=== PATIENT | male | born 1990 | race Caucasian/White ===

== ENCOUNTER 2018-12-28 16:31 | Outpatient (REF) | payer MEDICAID, SELFPAY ==
[2018-12-28 19:05] LABS: TSH (W/Ref FT4) 1.79 uIU/mL (0.358-3.74)
== END 2018-12-28 16:51 ==
LOC: LBN 16:31
PROVIDERS: PCP Internal Medicine; Visit Provider Family Medicine
DX: R45.86 Emotional lability (principal)
CPT/HCPCS: 84443

== ENCOUNTER 2019-02-03 03:40 | Outpatient (CLI) | payer MEDICAID, SELFPAY ==
--- NOTE | 2019-02-03 13:39 | DI.MRI_ITS ---
SYMPTOMS/DIAGNOSIS: SPELLS OF TREMBLING, TREMOR, R25.1, ? SEIZURES BRAIN MRI: The study was conducted according to the usual protocol. Axial T2, and sagittal T2, and axial diffusion, and axial FLAIR, and axial GRE, and axial T1 and coronal T2 pulse sequences were performed. No signal abnormality is demonstrated in the brain and there is no evidence of a hemorrhage, or mass or restricted diffusion. There is nothing to suggest mesial temporal sclerosis. The normal flow void is demonstrated in the cerebral vessels. The ventricles are normal. SUMMARY: Normal noncontrast enhanced brain MRI.
== END 2019-02-03 04:00 ==
PROVIDERS: PCP Internal Medicine; Visit Provider Psychiatry & Neurology Neurology
DX: R25.1 Tremor, unspecified (principal)
CPT/HCPCS: 70551

== ENCOUNTER 2019-02-09 01:55 | Outpatient (CLI) | payer MEDICAID, SELFPAY ==
--- NOTE | 2019-02-10 12:23 | PDOC.EEG_ITS ---
EEG: [facility] Department of Neurology LONG-TERM AMBULATORY EEG REPORT Date of Recordin02/09/19 at 15:26:59 to 02/10/19 at 06:16:22 Interpreting Physician: Dr. Julianne Lewis PCP/Referring Provider: Dr. Gerda Benedict Reason for study: Mr. Olson is a 28-year-old man with a 20+ year history of spells manifested by generalized tremors and inability to interact with his environment concerning for seizures. Current Medications: inhalational spacing device [Space Chamber Plus] #1 12/03/17 atorvastatin 20 mg tablet 20 mg PO DAILY #90 tab 11/11/18 naproxen sodium 550 mg tablet 550 mg PO HS PRN #90 tab-cap 11/11/18 buspirone 5 mg tablet 5 mg PO BID #180 tab 01/20/19 METHODS: An 18-channel digitized electroencephalogram was recorded in the ambulatory setting with video. The 10/20 international system of electrode placement was used and bipolar and referential electrode montages were recorded. In addition to EEG the patient was monitored for EKG and by video. Activation procedures of photic stimulation and hyperventilation were performed if applicable. The duration of the recording was ~14 hours. DESCRIPTION OF EEG: Waking background activity: During maximal wakefulness an11-Hz posterior background rhythm was present which was well-modulated, symmetrical, reactive to eye opening, and of moderate voltage. Faster frequencies were present in the bilateral anterior head regions. There was a normal anterior-posterior voltage gradient. Drowsy and sleeping background activity: During drowsiness, there was attenuation of the posterior dominant background rhythm and vertex waves. Normal stage II and III sleep was present with symmetrical sleep spindles, K- complexes, and vertex waves with slowing of the background rhythm to delta/theta frequencies. REM sleep manifested by rapid lateral eye movements and faster background rhythms was recorded. Arousal was unremarkable. Interictal abnormalities: none. Ictal findings: No events were recorded. Activating Procedures: Photic stimulation was performed which produced no posterior driving response. Hyperventilation was performed with moderate effort and produced no physiological slowing of the background. EKG: EKG revealed normal sinus rhythm. INTERPRETATION: This long-term EEG is normal during the awake and sleep states as well as during the activation procedures. PRIOR EEG: none CLINICAL CORRELATION: No focal regions of cerebral dysfunction or epileptiform activity was present. Epilepsy remains a clinical diagnosis and a normal EEG does not rule out epilepsy. Clinical correlation is advised. Julianne Lewis MD
== END 2019-02-09 02:15 ==
PROVIDERS: PCP Internal Medicine; Visit Provider Psychiatry & Neurology Neurology
DX: R56.9 Unspecified convulsions (principal)
CPT/HCPCS: 95953

== ENCOUNTER 2019-03-18 17:29 | Emergency (ER) | payer MEDICAID, SELFPAY ==
[2019-03-18 17:33] VITALS: BP 117/85; PULSE 86; RESP 16; TEMP 36.7; O2SAT 97
--- NOTE | 2019-03-18 17:47 | ED.GENADUL_ITS ---
Discharge Plan Disposition Patient Disposition: HOME Condition: Improving Discharge Details Chief Complaint: Chest/Rib Clinical Impression: Chest wall muscle strain Primary Care Provider: Gerda Benedict ED Provider: Gurvinder Chase Home Meds and New Rx's Prescriptions: New methocarbamol 500 mg tablet 500 mg PO Q6H PRN (Reason: Pain, Moderate) Qty: 14 RF: 0 Continued naproxen sodium 550 mg tablet 550 mg PO HS PRN (Reason: pain) Qty: 90 RF: 1 atorvastatin 20 mg tablet 20 mg PO DAILY Qty: 90 RF: 3 buspirone 5 mg tablet 5 mg PO BID Qty: 180 RF: 3 Space Chamber Plus 1 EACH spacer Miscellaneous BID Qty: 1 RF: 0 Discharge Instructions Instructions: Muscle Strain (ED) Additional Instructions: Remove Lidoderm patch in 12 hours time Continue your naproxen as previously scheduled. May use the prescribed methocarbamol if needed for muscular pain. Return if you develop shortness of breath, a cough or fever, or any other acute concerns. Follow-up with Dr. Benedict for recheck if not improving in 1 week's time Medical Decision Making 28-year-old male who slipped in her recliner last night, then transition to his bed, woke this morning with records and life anterior rib pain it is worse with movement and worse after working today. He is not had a cough, leg pain, swelling, shortness of breath. He has not had a rash. He has normal vital signs. Tender along the anterolateral rib cage and most consistent with a rib contusion and. He states he feels he may have slept block last night and does not have any history of trauma. Nonetheless, must exclude underlying structural injury and patient referred for chest Xray. There is no acute longer bony findings. Discussed with patient home management for chest wall strain. May try methocarb august as needed for muscular pain. Lidoderm patch x1 tonight. I do not find that this is consistent with PE or acute coronary syndrome. Patient understands return precautions. HPI General Mode of arrival: ambulatory . Date/Time Provider Initiated Documentation: 03/18/19 17:30 . Limitations to Documentation: no limitations . History of Present Illness 28 year old M presents to the emergency department with the chief complaint of Right greater than left rib pain, began today, described as moderate, Quality is described as aching, and is localized to the chest, left and right. Patient reports no radiation. Patient started experiencing this hour(s) and it has been constant. No relieving factors improve symptom(s), No exacerbating factors reported . Patient notes no other symptoms.; denies shortness of breath and syncope. Patient did receive the following treatments prior to arrival, none Related Data Home Medications Medication Instructions Recorded Confirmed Space Chamber Plus #1 12/03/17 02/16/19 atorvastatin 20 mg tablet 20 mg PO DAILY #90 tab 11/11/18 02/16/19 naproxen sodium 550 mg tablet 550 mg PO HS PRN #90 tab-cap 11/11/18 02/16/19 buspirone 5 mg tablet 5 mg PO BID #180 tab 01/20/19 02/16/19 methocarbamol 500 mg PO Q6H PRN #14 tab 03/18/19 Previous Rx's Medication Instructions Recorded atorvastatin 20 mg tablet 20 mg PO DAILY #90 tab 11/11/18 naproxen sodium 550 mg tablet 550 mg PO HS PRN #90 tab-cap 11/11/18 buspirone 5 mg tablet 5 mg PO BID #180 tab 01/20/19 methocarbamol 500 mg PO Q6H PRN #14 tab 03/18/19 Allergies Allergy/AdvReac Type Severity Reaction Status Date / Time methadone Allergy Severe seizure Verified 02/16/19 12:37 General Stated Complaint: Chest/Rib SKIP: 3 Review of Systems Review of Systems No recent travel, leg pain or swelling, fever, cough. Slept in a recliner last night. Does have poor sleep of 2 to 3 hours per night this week. 8 systems reviewed and otherwise negative [facility] Medical History H/O alcohol abuse (Acute) Anxiety and depression Chronic headaches High cholesterol Asthma Cigarette nicotine dependence without complication (Acute 05/13/18) Chronic back pain (Acute 03/29/15) BMI 34.0-34.9,adult (Acute 11/05/17) Depression (Resolved 03/29/15) Shingles (07/04/13) Surgical History Excision, Pilonidal Cyst (11/03/09) Tonsillectomy and adenoidectomy Family History Mother Diabetes Anxiety Arthritis Depression Father Heart disease Sister Asthma Grandfather Emphysema lung Grandmother No problems noted. Social History Smoking/Tobacco Use Status: Current every day Quit status: considering quitting Alcohol Intake: never Substance use type: does not use Household members: other Details: lives at [place] Housing: apartment Number of Children: 0 current occupation: works at [employer] What type of physical activity do you participate in: walking Duration: 15-30 minutes/day Frequency: 5-6 times per week Water heater temp set <120 deg: Yes Working smoke detector in home: Yes Fire extinguisher in home: Yes Exam Narrative Exam Narrative: GEN: awake, alert, oriented 3. Pleasant, well groomed, interactive. HEAD: Normocephalic, atraumatic ENT: Mucous membranes moist, oropharynx unremarkable, External ear exam unremarkable EYES: PERRL, EOMI NECK: Full ROM, no DOMINICK, no menigismus CHEST/RESP: Tender right anterolateral rib cage without crepitus, clear to auscultation bilateral, no wheeze/rhonchi/rales CARDIOVASCULAR: RRR, no murmur, rub diamond. 2+ Rad pulse bilateral ABDOMEN: Soft, nontender, no mass. +Bowel sounds EXT: Full ROM, no edema, no rash Neuro: Grossly normal neurologic exam, conversant, interactive. Psych: Speech fluent, thoughts congruent, affect normal Course Vital Signs Temperature 36.7 C 03/18/19 17:33 Pulse 86 03/18/19 17:33 Respiratory Rate 16 03/18/19 17:33 Blood Pressure 117/85 03/18/19 17:33 Pulse Oximetry 97 03/18/19 17:33 Temperature 36.7 C 03/18/19 17:33 Temperature Source Skin 03/18/19 17:33 Pulse 86 03/18/19 17:33 Respiratory Rate 16 03/18/19 17:33 Blood Pressure 117/85 03/18/19 17:33 Blood Pressure Position Sitting 03/18/19 17:33 Pulse Oximetry 97 03/18/19 17:33 Oxygen Delivery Method Room Air 03/18/19 17:33 Oxygen Flow Rate 0 03/18/19 17:33 Pain Level 7 03/18/19 17:33
--- NOTE | 2019-03-18 18:32 | DI.RAD_ITS ---
SYMPTOM/DIAGNOSIS: RIB PAIN PA AND LATERAL CHEST; Comparison is made with 01/12/13. The cardiac and mediastinal contours have a normal appearance. The lungs are well inflated and clear. No infiltrate, effusion or pneumothorax is seen. There are no grossly displaced rib fractures. IMPRESSION: Negative chest xray.
--- NOTE | 2019-03-18 19:07 | DI.VRAD_ITS ---
EXAM: XR Chest, 2 Views EXAM DATE/TIME: 03/18/2019 5:46 PM CLINICAL HISTORY: 28 years old, male; Chest wall pain; Right and left rib pain R > L TECHNIQUE: Imaging protocol: XR of the chest, 2 views. COMPARISON: CR CHEST 2 VIEWS PA,LAT 01/12/2013 3:46 PM FINDINGS: Lungs: Unremarkable. No consolidation. Pleural space: Unremarkable. No pleural effusion. No pneumothorax. Heart/Mediastinum: Unremarkable. No cardiomegaly. Bones/joints: Unremarkable. IMPRESSION: No active pulmonary disease. No acute changes compared to 01/12/2013. Dictated and Authenticated by: Emanuel Gruber MD. Ordering:MARY ELLEN Hollins MD
[2019-03-18 19:17] VITALS: BP 117/85; PULSE 86; RESP 16; TEMP 36.7; O2SAT 97
[2019-03-18] MEDS: Lidocaine 5% Patch 1 PATCH TP (19:22)
== END 2019-03-18 19:30 | disposition home or self-care (01) ==
PROVIDERS: Emergency Provider Emergency Medicine; PCP Internal Medicine
DX: S29.011A Strain of muscle and tendon of front wall of thorax, initial encounter (principal); X50.9XXA Other and unspecified overexertion or strenuous movements or postures, initial encounter
CPT/HCPCS: 99283; 71046

== ENCOUNTER 2019-05-12 07:34 | Outpatient (CLI) | payer MEDICAID, SELFPAY ==
[2019-05-12 09:58] LABS: Calculated LDL 176 mg/dL; Cholesterol 232 mg/dL (50-200); HDL Cholesterol 31 mg/dL (40-60); Triglyceride 126 mg/dL (30-150)
== END 2019-05-12 07:54 ==
PROVIDERS: PCP Internal Medicine; Visit Provider Internal Medicine
DX: E78.00 Pure hypercholesterolemia, unspecified (principal)
CPT/HCPCS: 36415; 80061; 83721

== ENCOUNTER 2019-06-19 21:11 | Emergency (ER) | payer MEDICAID, SELFPAY ==
[2019-06-19] VITALS (20 sets, daily range): BP systolic 99–131; BP diastolic 61–83; PULSE 63–101; RESP 13–32; TEMP 37.3; O2SAT 92–96
--- NOTE | 2019-06-19 21:33 | DI.RAD_ITS ---
SYMPTOM/DIAGNOSIS: CHEST PAIN EARLIER. PA AND LATERAL CHEST: 06/19 The heart is normal in size. The lungs are clear. The mediastinal structures and pleura appear intact. CONCLUSION: Normal chest.
--- NOTE | 2019-06-19 21:34 | DI.CT_ITS ---
SYMPTOM/DIAGNOSIS: DIMINISHED SENSATION LEFT FACE, LEFT FACE DROOP CRANIAL CT (WITHOUT CONTRAST): 06/[address] was performed. The ventricular system is normal in appearance. There is no evidence of an intracranial mass lesion. There is no evidence of a subdural or epidural hematoma. No focal areas of decreased attenuation are seen. CONCLUSION: Normal noncontrast Cranial CT.
--- NOTE | 2019-06-19 21:38 | W.ED.GENAD ---
Discharge Plan Disposition Patient Disposition: HOME Condition: Good Discharge Details Chief Complaint: FacialProb Clinical Impression: Weakness on left side of face, Chest pain, exertional Primary Care Provider: Gerda Benedict ED Provider: Triston Richardson Home Meds and New Rx's Prescriptions: No Action No Known Home Meds RF: 0 Discharge Instructions Additional Instructions: Please follow-up with neurology. Call on Friday for an appointment. Please follow-up with your primary care physician. Call on Friday for an appointment. You should have a stress test performed ideally within the next 72 hours. Return to the ER for any worsening or new concerning symptoms. If you notice any worsening of your symptoms, or any new symptoms such as vomiting, diarrhea, fever, chills, shortness of breath, chest pain, numbness, weakness, or fainting , please return immediately to the emergency department for reevaluation. Please follow up with your primary care provider as soon as possible for reassessment and reevaluation. As always, it was a pleasure participating in your medical care today. Referrals: Gerda Benedict MD [Primary Care Provider] - Julianne Lewis MD [ [facility] STAFF PHYSICIAN] - Discharge Data Discharge Date/Time-TO BE ENTERED AT DEPARTURE: 06/20/19 01:56 Medical Decision Making <Triston Richardson MD - Last Filed: 06/26/19 09:30> 21:52 --29-year-old male smoker with positive family history for heart disease, history of anxiety and depression, here with concern that his left face is drooping subtly compared to right face. I do not find any facial weakness on exam. Patient does note that left face sensation diminished to light touch compared to right. Otherwise neurologically intact. I think the likelihood of CVA is extremely low. Consider TIA as facial droop no longer present on exam. Plan to CT head. Patient also notes that he had some chest pain earlier today that lasted about 15 minutes after exertional activity. Patient is a smoker and has family history of heart disease. Consider ACS. ECG was reviewed and interpreted by me: Normal sinus rhythm 82 bpm, normal axis, no STEMI, nondiagnostic. Plan to check troponin. 22:13 --CT head interpreted by radiology: IMPRESSION: No acute intracranial findings. ASSESSMENT: ASPECTS ([place] Stroke Program Early CT Score) is 10 Chest x-ray reviewed and interpreted by radiology: No acute cardiopulmonary pathology 23:30 -- Patient reassessed and notes numbness has resolved. He did go to the bathroom and notes that he still feels like his left face is drooping. I again did not find any facial drooping on exam. Labs reviewed and initial troponin negative. Anion gap is slightly elevated. I will give IV fluid bolus. Will give full dose aspirin. Plan for delta troponin. <David Givens DO - Last Filed: 06/21/19 00:48> Case was signed out to me my colleague Dr. Triston Richardson. We are pending delta troponin at that time. Repeat delta troponin has returned within normal limits. CT imaging of the head is negative for acute process. The remainder the patient's laboratory work-up is benign. Repeat neurologic exam demonstrates no focal neurologic findings, no deficits, no evidence of facial droop. Sensation is intact throughout. At this time exam is inconsistent with stroke, ACS, or other acute life-threatening abnormality. Did discuss the importance of close follow-up with his primary care provider and his neurologist. We discussed red flags for which to return. Heart score is in the low risk category. I do feel that at this time the patient is clinically safe for discharge home with close follow-up. We discussed red flags which to return. I have extensively reviewed the treatment plan and discharge instructions with the patient. I have addressed all patient concerns at this time. The patient was made aware of what symptoms to monitor for that would warrant a return to the emergency department. Discussed the plan with the patient, they demonstrate verbal understanding and agreement with our assessment and plan at this time. HPI <Triston Richardson MD - Last Filed: 06/26/19 09:30> General Mode of arrival: ambulatory. Date/Time Provider Initiated Documentation: 06/19/19 21:21. Limitations to Documentation: no limitations. Information obtained by: patient. HPI Narrative: 29-year-old male smoker with history of asthma, anxiety and depression, family history of heart disease, presents with chief complaint of left facial weakness. Patient notes that around 730 this evening he went in the bathroom and looked in the mirror and noticed that his left face seemed to be drooping subtly compared to his right face. Symptoms moderate with no modifiers. He has not noticed this in the past. He also states that he pushed his finger into his left face and sensation seems different compared to the right side. Again this is not something is noticed in the past. Patient also notes that he had a long bike ride today and during his bike ride he developed bilateral leg pain and then developed chest pain. Pain was anterior central chest and lasted about 15 minutes. Pain improved when he stopped biking and started walking. He had no associated shortness of breath. No nausea, dizziness or diaphoresis. Related Data Home Medications Medication Instructions Recorded Confirmed Unknown [No Known Home Meds] 06/22/19 06/22/19 Allergies Allergy/AdvReac Type Severity Reaction Status Date / Time methadone Allergy Severe seizure Verified 06/22/19 14:38 General Stated Complaint: FacialProb SKIP: 3 Review of Systems <Triston Richardson MD - Last Filed: 06/26/19 09:30> Constitutional Denies headache(s) ENT Denies headache(s) Cardiovascular Reports as per HPI, Reports chest pain and Denies dyspnea Respiratory Denies dyspnea Neurologic Denies headache(s) PFSH <Triston Richardson MD - Last Filed: 06/26/19 09:30> Medical History Anxiety and depression Asthma BMI 34.0-34.9,adult (Acute 11/05/17) Chronic back pain (Acute 03/29/15) Chronic headaches Cigarette nicotine dependence without complication (Acute 05/13/18) Depression (Resolved 03/29/15) H/O alcohol abuse (Acute) High cholesterol Shingles (07/04/13) Surgical History Excision, Pilonidal Cyst (11/03/09) Tonsillectomy and adenoidectomy Family History Mother Diabetes Anxiety Arthritis Depression Father Heart disease Sister Asthma Grandfather Emphysema lung Grandmother No problems noted. Social History Smoking/Tobacco Use Status: Current every day Quit status: considering quitting Alcohol Intake: never Drug use: Never Substance use type: does not use Household members: other Details: lives at [place] Housing: apartment Number of Children: 0 current occupation: works at [employer] What type of physical activity do you participate in: walking Duration: 15-30 minutes/day Frequency: 5-6 times per week Water heater temp set <120 deg: Yes Working smoke detector in home: Yes Fire extinguisher in home: Yes Do you feel safe at home: Yes Do you feel safe in your relationship?: Yes Exam <Triston Richardson MD - Last Filed: 06/26/19 09:30> Const General: cooperative and no acute distress HENMT Head: normocephalic and atraumatic Ears: TM's normal bilaterally Mouth: moist mucous membranes Eyes Conjunctivae: normal conjunctivae Sclera: normal sclerae EOM: EOM intact bilaterally Neck Neck: trachea midline and supple Resp Auscultation: clear to auscultation bilaterally, no rales, no rhonchi and no wheezes Cardio Jugular venous pressure: no JVD Rate: regular rate and not tachycardic Rhythm: regular rhythm GI Palpation: soft, not firm, no guarding, no masses, not rigid and nontender Skin General skin exam: no rashes or lesions noted Neuro General: alert, awake, oriented x3, tone normal and no focal motor deficits Cranial Nerves: PERRL, accommodation normal, EOM intact bilaterally, facial strength normal, tongue midline, hearing normal, able to rotate head bilaterally, able to elevate shoulders bilaterally and Symmetric palate elevation Cognition: normal cognition Speech: speech normal Motor: muscle tone normal throughout and strength 5/5 throughout Sensory Exam: other (Diminished sensation to light touch left face compared to right) Extrem General: no edema Psych Appearance: grossly normal Mental Status: mental status grossly normal Speech and Movement: speech and movement normal Course <Triston Richardson MD - Last Filed: 06/26/19 09:30> Vital Signs Temperature 37.3 C 06/19/19 21:16 Pulse 97 H 06/19/19 21:16 Respiratory Rate 18 06/19/19 21:16 Blood Pressure 126/83 06/19/19 21:16 Pulse Oximetry 95 06/19/19 21:16 Temperature 37.3 C 06/19/19 21:16 Temperature Source Tympanic 06/19/19 21:16 Pulse 97 H 06/19/19 21:16 Respiratory Rate 18 06/19/19 21:16 Respiratory Effort Non-Labored 08/17/19 21:22 Blood Pressure 126/83 08/17/19 21:16 Blood Pressure Position Sitting 06/19/19 21:16 Pulse Oximetry 95 06/19/19 21:16 Oxygen Delivery Method Room Air 06/19/19 21:16 Oxygen Flow Rate 0 06/19/19 21:16 Pain Level 0 06/19/19 21:22
[2019-06-19 21:57] LABS: Abs Immature Grans 0.02 k/cumm (0.0-0.09); Absolute Eosinophil Count 0.69 k/cumm (0.0-0.7); Absolute Lymphocyte Count 2.56 k/cumm (1.2-3.4); Basophils % 0.4; HCT 46.3 % (40.0-50.0); Immature Grans % 0.2; Lymphocytes % 22.4; Mean Corp. HGB Concentration 34.6 g/dL (32.0-36.0); Mean Corpuscular Hemoglobin 31.7 pg (27.0-33.0); Mean Corpuscular Volume 91.7 fL (80-95); Monocytes % 6.7; Neutrophils % 64.3; Platelet Count 277 x1000/uL (130-400); RBC 5.05 m/cumm (4.50-6.00); RBC Distribution Width 13.6 % (11.8-14.1); White Blood Cell Count 11.42 k/cumm (4.4-10.8)
--- NOTE | 2019-06-19 22:04 | DI.VRAD_ITS ---
EXAM: CT Head Without Contrast EXAM DATE/TIME: 06/19/2019 21:35 CLINICAL HISTORY: 29 years old, male; Weakness, facial; Patient HX: Diminished left face sensation, left face droop TECHNIQUE: Imaging protocol: Computed tomography images of the head without contrast. Coronal and sagittal reformatted images were created and reviewed. Other technique: STROKE PROTOCOL was implemented. COMPARISON: MR brain wo 02/03/2019 16:00 FINDINGS: Brain: No hemorrhage. No significant white matter disease. No edema. Ventricles: No ventriculomegaly. Bones/joints: No acute fracture. Sinuses: No acute sinusitis. Mastoid air cells: No mastoid effusion. Soft tissues: No suspicious lesions. IMPRESSION: No acute intracranial findings. ASSESSMENT: ASPECTS ([place] Stroke Program Early CT Score) is 10 Dictated and Authenticated by: Radha Garcia MD. Ordering:HIGINIO Goldstein MD
[2019-06-19 22:05] LABS: Absolute Basophil Count 0.05 k/cumm (0.0-0.2); Absolute Monocyte Count 0.77 k/cumm (0.11-0.7); Absolute Neutrophil Count 7.34 k/cumm (1.2-6.7)
--- NOTE | 2019-06-19 22:07 | DI.VRAD_ITS ---
EXAM: XR Chest, 2 Views EXAM DATE/TIME: 06/19/2019 21:35 CLINICAL HISTORY: 29 years old, male; Other: Chest pain earlier TECHNIQUE: Imaging protocol: XR of the chest, 2 views. COMPARISON: CR XR CHEST 2V PA LATERAL 03/18/2019 18:29 FINDINGS: Lungs: No consolidation. Pleural space: No pleural effusion. No pneumothorax. Azygos fissure, normal variant. Heart/Mediastinum: No cardiomegaly. Bones/joints: No acute fracture. IMPRESSION: No acute cardiopulmonary pathology. Dictated and Authenticated by: Radha Garcia MD. Ordering:HIGINIO Goldstein MD
[2019-06-19 22:15] LABS: ALT 25 U/L (12-78); AST 7 U/L (15-37); Albumin 3.9 g/dL (3.4-5.0); Alkaline Phosphatase 87 U/L (46-116); Anion Gap 12.5 mmol/L (3-11); BUN 15 mg/dL (7-18); Bilirubin, Total 0.3 mg/dL (0.2-1.0); CO2 23.5 mmol/L (21.0-32.0); CREATININE 1.17 mg/dL (0.70-1.30); Calcium 8.7 mg/dL (8.5-10.1); Chloride 101 mmol/L (98-107); Glucose 99 mg/dL (70-100); Magnesium 1.9 mg/dL (1.8-2.4); Potassium 3.5 mmol/L (3.5-5.1); Sodium 137 mmol/L (136-145); Total Protein 7.7 g/dL (6.4-8.2)
[2019-06-19 22:19] LABS: Troponin I < 0.05 ng/mL (0.00-0.06)
[2019-06-19] MEDS: Normal Saline 1,000 ML 1000 ML IV (23:44)
[2019-06-19] MEDS: Aspirin 325 MG TAB PO (23:44)
[2019-06-20] VITALS (18 sets, daily range): BP systolic 82–91; BP diastolic 45–54; PULSE 56–80; RESP 16; O2SAT 94–98
[2019-06-20 01:13] LABS: Troponin I < 0.05 ng/mL (0.00-0.06)
== END 2019-06-20 01:56 | disposition home or self-care (01) ==
PROVIDERS: Emergency Provider Student in an Organized Health Care Education/Training Program; PCP Internal Medicine
DX: R53.1 Weakness (principal); R07.89 Other chest pain; F41.8 Other specified anxiety disorders
CPT/HCPCS: 36415; 36416; 80053; 82962; 96360; 99284; 70450; 71046; 83735; 84484; 85025

== ENCOUNTER 2019-07-07 00:19 | Outpatient (CLI) | payer MEDICAID, SELFPAY ==
--- NOTE | 2019-07-07 08:30 | ETT_ITS ---
*[facility]* *[facility]* [address] [place] [address] Stress Electrocardiography Sg protocol Date of study: 07/07/2019 *PATIENT PRESENTATION* Height: 177.2cm (69.8in) Blood Pressure: Weight: 100kg (220lb) BSA: 2.25m^2 Ordering physician: Ankur Sargent Impressions: Normal study after maximal exercise. Summary: 1. Stress ECG conclusions: The stress ECG is negative. 2. Stress: The target heart rate was achieved. Indication: R07.9. History: REASON FOR TESTING: PATIENT TESTING TODAY FOR FURTHER RISK STRATIFICATION. PATIENT PRESENTED TO THE ER ON 06/19/19 WITH LEFT SIDED FACIAL DROOP AND NUMBNESS. ALSO EARLIER IN THE DAY, HE STATES HE HAD SOME EXERTIONAL (LONG BIKE RIDE) MIDSTERNAL SHARP CHEST PAIN THAT LASTED APPROXIMATELY 15 MINUTES THAT IMPROVED WHEN HE STOPPED BIKING AND STARTED WALKING. TROPONINS IN THE ER WERE NEGATIVE X2. PATIENT DENIES CHEST PAIN UPON ARRIVAL TO TESTING TODAY. NO SIGNIFICANT PAST MEDICAL HISTORY. SMOKING STATUS: CURRENT SMOKER. SMOKED FOR 21 YEARS 1/2 TO 1 PPD. EXERCISE ROUTINE: WALKS APPROXIMATELY 3 TO 5 MILES PER DAY. Risk factors: Family history of coronary artery disease. Current tobacco use. Dyslipidemia. Cholesterol: 232mg/dl. HDL: 31mg/dl. LDL: 142mg/dl. Triglycerides: 126mg/dl. ALLERGIES: METHADONE. MEDICATIONS: NAPROXEN PRN (DOSE UNKNOWN), EXCEDERIN PRN (DOSE UNKNOWN), IBUPROFEN PRN (DOSE UNKNOWN). PATIENT STATES HE HAS NOT TAKEN FOLLOWING PRESCRIBED MEDICATIONS FOR THE PAST 5 MONTHS: BUSPAR (DOSE UNKNOWN), LIPITOR (DOSE UNKNOWN), TRAZODONE (DOSE UNKNOWN). Protocol: Sg protocol. Baseline ECG: SINUS RHYTHM. HR 76 BPM. Stress protocol: + +---+ + !Stage !HR !BP (mmHg) ! + +---+ + !Baseline supine !76 !118/78 (91)! + +---+ + !Baseline standing !103!114/72 (86)! + +---+ + !Stage I; 1.7mph, 10degrees; 3 min !119!118/70 (86)! + +---+ + !Stage II; 2.5mph, 12degrees; 3 min !132!130/66 (87)! + +---+ + !Stage III; 3.4mph, 14degrees; 3 min!162!140/70 (93)! + +---+ + !Recovery; 1 min !167!140/78 (99)! + +---+ + !Recovery; 3 min !103!150/70 (97)! + +---+ + !Recovery; 6 min !95 !120/74 (89)! + +---+ + * Stress results: STRESS TEST ENDED IN 11 MINUTES 6 SECONDS DUE TO FATIGUE AND COUGHING SPELL. NORMAL HEART RATE AND BLOOD PRESSURE RESPONSE TO EXERCISE. MAX HEART RATE: 188. 98 % OF TARGET HEART RATE ACHIEVED. MET'S: 13.48. NO ECTOPY. NO ANGINA. NO ST SEGMENT CHANGES. AVERAGE FUNCTIONAL CAPACITY. The target heart rate was achieved. The rate-pressure product for the peak heart rate and blood pressure was 23650iv Hg/min. Stress ECG: The stress ECG is negative. Alfaro treadmill score: 11. This score predicts a low risk of cardiac events. Study data: Von Ch MD supervised and was readily available during the procedure. This study was interpreted by [facility]. Study status: Routine. Consent: The risks, benefits, and alternatives to the procedure were explained to the patient and informed consent was obtained. Procedure: Initial setup. A baseline ECG was recorded. Surface ECG leads and manual cuff blood pressure measurements were monitored. Heart sounds: Normal. Lung sounds: Normal. Treadmill exercise testing was performed using the Sg protocol. Study completion: The patient tolerated the procedure well and was discharged from the lab. Discharge: The patient left the laboratory in stable condition. Birthdate: Patient birthdate: 1990. Sex: Gender: male. Study date: Study date: 07/07/2019. Study time: 00:01 AM. Electronically signed by Von Ch MD 07/07/2019 17:14
== END 2019-07-07 00:39 ==
PROVIDERS: PCP Internal Medicine; Visit Provider Family Medicine
DX: R07.9 Chest pain, unspecified (principal); E78.00 Pure hypercholesterolemia, unspecified; F17.200 Nicotine dependence, unspecified, uncomplicated; Z82.49 Family history of ischemic heart disease and other diseases of the circulatory system
CPT/HCPCS: 93017

== ENCOUNTER 2020-05-29 11:31 | Emergency (ER) | payer OTHER, SELFPAY ==
[2020-05-29 11:43] VITALS: BP 114/84; PULSE 95; RESP 22; TEMP 36.3; O2SAT 96
[2020-05-29 11:45] VITALS: RESP 22
--- NOTE | 2020-05-29 11:45 | DI.RAD_ITS ---
EXAM: XR CHEST 2V PA LATERAL CLINICAL HISTORY: shortness of breath TECHNIQUE: 2D digital imaging was performed. COMPARISON: No exams were available for comparison FINDINGS: MEDIASTINUM: Normal. HEART: Normal. PULMONARY VASCULATURE: Normal. LUNGS: Clear. PLEURAL SPACE: No pleural effusion or pneumothorax. BONE:Normal. OTHER FINDINGS:Normal. IMPRESSION: No acute pulmonary findings. DATA REPOSITORY: RADIATION DOSE DELIVERED:
--- NOTE | 2020-05-29 12:18 | ED.GENADUL_ITS ---
Discharge Plan Disposition Patient Disposition: HOME Condition: Improving Discharge Details Chief Complaint: Anxiety Clinical Impression: Anxiety Primary Care Provider: Gerda Benedict ED Provider: Taya Tijerina Discharge Instructions Instructions: Anxiety (ED) Additional Instructions: Follow-up with your primary care provider Stand Alone Forms: Work Release Referrals: Gerda Benedict MD [Primary Care Provider] - Medical Decision Making Patient presents to the emergency department with complaints of shortness of breath that most resemble anxiety. His vital signs are stable except respiratory rate which is elevated he is satting in the high 90s on room air there is no cough he has no abnormal breath sounds he is clear bilaterally with no wheezing coarse breath sounds or diminished breath sounds. A chest x-ray is obtained and shows no acute cardiopulmonary process. After discussing his x-ray results and time sitting in the room. His respiratory symptoms have resolved. He has no ongoing shortness of breath or symptoms at this time. He was advised to stop smoking. He is not comfortable returning to work. I will discharge him to home with no new orders. He should follow-up with his PCP to be released back to work. HPI General Date/Time Provider Initiated Documentation: 05/29/20 11:47 . Limitations to Documentation: no limitations . Information obtained by: patient . HPI Narrative: Patient presents to the emergency department for evaluation of shortness of breath and anxiety that developed while at work. He has had no fevers no chills no cough no known COVID exposures. He does smoke daily. He has not had any wheezing. Related Data Allergies Allergy/AdvReac Type Severity Reaction Status Date / Time methadone Allergy Severe seizure Verified 05/29/20 11:51 house dust Allergy Intermediate Wheezing Unverified 05/29/20 11:51 General Stated Complaint: Anxiety SKIP: 4 Review of Systems Constitutional Constitutional: Denies fever(s) Cardiovascular Cardiovascular: Denies chest pain and Reports dyspnea Respiratory Respiratory: Denies cough, Reports dyspnea, Denies stridor and Denies wheezing Psychiatric Psychiatric: Reports anxiety Allergic/Immunologic Allergic/Immunologic: Denies wheezing [facility] Medical History (Updated 05/29/20 @ 12:35 by Taya Tijerina NP) Anxiety (Chronic) Anxiety and depression (Resolved) Asthma BMI 34.0-34.9,adult (Acute 11/05/17) 2018: 34.4 Chronic back pain (Acute 03/29/15) Normal MRI 11/2014 Chronic headaches Cigarette nicotine dependence without complication (Acute 05/13/18) Depression (Chronic 03/29/15) H/O alcohol abuse (Acute) sober since 2015 High cholesterol Shingles (07/04/13) Surgical History Excision, Pilonidal Cyst (11/03/09) Tonsillectomy and adenoidectomy [place] Social History (Updated 11/17/19 @ 09:16 by Carmenza Schmid LPN) Smoking/Tobacco Use Status: Current every day Tobacco Type: cigarettes Years smoked: 21 Quit status: considering quitting Alcohol Intake: never Previous attempts at quittin Drug use: Never Substance use type: does not use Housing: apartment Number of Children: 0 current occupation: works at [employer] What type of physical activity do you participate in: walking Duration: 15-30 minutes/day Frequency: 5-6 times per week Water heater temp set <120 deg: Yes Working smoke detector in home: Yes Fire extinguisher in home: Yes Do you feel safe at home: Yes Do you feel safe in your relationship?: Yes Exam Const General: cooperative, healthy appearing, comfortable and anxious Nutritional Appearance: average body habitus Orientation: alert, awake and oriented x3 HENMT Head: normal to inspection, normocephalic and atraumatic Resp Effort & Inspection: normal respiratory effort Auscultation: clear to auscultation bilaterally, lung sounds not diminished and no wheezes Cardio Rate: regular rate Rhythm: regular rhythm Skin Lesions: no lesions Rashes: no rashes Neuro General: patient alert, patient awake and patient oriented x3 Cranial Nerves: CN's II-XI intact bilaterally Extrem General: normal to inspection and full ROM Course Vital Signs Vital signs: Vital Signs Temperature 36.3 C L 05/29/20 11:43 Pulse 95 H 05/29/20 11:43 Respiratory Rate 22 05/29/20 11:43 Blood Pressure 114/84 05/29/20 11:43 Pulse Oximetry 96 05/29/20 11:43 Temperature 36.3 C L 05/29/20 11:43 Temperature Source Tympanic 05/29/20 11:43 Pulse 95 H 05/29/20 11:43 Respiratory Rate 22 05/29/20 11:45 Respiratory Effort 05/29/20 11:45 Respiratory Depth Normal 07/27/20 11:45 Respiratory Pattern Normal 05/29/20 11:45 Blood Pressure 114/84 05/29/20 11:43 Pulse Oximetry 96 05/29/20 11:43 Oxygen Delivery Method Room Air 05/29/20 11:43 Oxygen Flow Rate 0 05/29/20 11:43 Pain Level 0 05/29/20 11:43
== END 2020-05-29 12:54 | disposition home or self-care (01) ==
PROVIDERS: Emergency Provider Nurse Practitioner Acute Care; PCP Internal Medicine
DX: F41.8 Other specified anxiety disorders (principal); R06.02 Shortness of breath; J45.909 Unspecified asthma, uncomplicated; F17.210 Nicotine dependence, cigarettes, uncomplicated
CPT/HCPCS: 99283; 71046

== ENCOUNTER 2020-07-07 03:42 | Outpatient (CLI) | payer OTHER, SELFPAY ==
[2020-07-10 14:37] LABS: COVID-19 RT-PCR Result NEGATIVE (Negative)
== END 2020-07-07 04:02 ==
PROVIDERS: PCP Family Medicine; Visit Provider Family Medicine
DX: Z11.59 Encounter for screening for other viral diseases (principal); Z01.811 Encounter for preprocedural respiratory examination
CPT/HCPCS: U0003

== ENCOUNTER 2020-07-10 00:22 | Outpatient (CLI) | payer OTHER, SELFPAY ==
[2020-07-10] MEDS: Albuterol HFA 18 GM 200 PUFF INH IH (14:27)
[2020-07-10] MEDS: Methacholine 100 MG VIAL IH (14:27)
[2020-07-10] MEDS: Inhaler, Assist Device 1 EACH MC (14:27)
--- NOTE | 2020-07-12 07:55 | W.PFT ---
Date of service: 07/10/20 Time of Service: 12:53 Pulmonary Function Test Result Interpretation Spirometry: Mild obstructive airways disease with no significant bronchodilator response. Impression Mild obstructive airways disease, with no significant bronchodilator response. When the study was compared to previous one from 12/05/2005, the patient has a total of 480 cc decline in FVC, FEV1 has declined by 290 cc. Clinical Correlation therefore is recommended. Methacholine Challnege Test Date of Service Date of Service: 07/10/2020 Note After baseline spirometry showing mild obstructive airways disease, methacholine challenge testing was carried out up to a methacholine concentration of 0.5 mg/mL at which point, the patient had a 28% drop in FEV1. Impression Strongly positive methacholine challenge test.
== END 2020-07-10 00:42 ==
PROVIDERS: PCP Family Medicine; Visit Provider Family Medicine
DX: R06.09 Other forms of dyspnea (principal); F17.200 Nicotine dependence, unspecified, uncomplicated
CPT/HCPCS: 94060; 95070; J7674

== ENCOUNTER 2020-08-31 14:08 | Outpatient (REF) | payer OTHER, SELFPAY ==
[2020-09-06 12:22] LABS: Chlamydia Result Negative (Negative); GC Result Negative (Negative)
== END 2020-08-31 14:28 ==
LOC: LBN 14:08
PROVIDERS: PCP Family Medicine; Visit Provider Family Medicine
DX: R30.0 Dysuria (principal); N34.2 Other urethritis
CPT/HCPCS: 87491; 87591; 87086

== ENCOUNTER 2020-09-07 00:52 | Outpatient (CLI) | payer OTHER, SELFPAY ==
[2020-09-07 09:22] LABS: Anion Gap 8.4 mmol/L (3-11); BUN 11 mg/dL (7-18); CO2 29.6 mmol/L (21.0-32.0); CREATININE 1.21 mg/dL (0.70-1.30); Calcium 9.5 mg/dL (8.5-10.1); Chloride 104 mmol/L (98-107); Glucose 102 mg/dL (74-106); Magnesium 2.1 mg/dL (1.8-2.4); Potassium 4.2 mmol/L (3.5-5.1); Sodium 142 mmol/L (136-145); TSH (W/Ref FT4) 2.04 uIU/mL (0.36-3.74)
== END 2020-09-07 01:12 ==
PROVIDERS: PCP Family Medicine; Visit Provider Family Medicine
DX: Q15.9 Congenital malformation of eye, unspecified (principal); H57.9 Unspecified disorder of eye and adnexa
CPT/HCPCS: 36415; 80048; 83735; 84443

== ENCOUNTER 2020-11-30 21:14 | Outpatient (REF) | payer SELFPAY ==
[2020-12-02 17:15] LABS: COVID-19 RT-PCR Result NEGATIVE (Negative)
== END 2020-11-30 21:34 ==
LOC: NCHCN 21:14
PROVIDERS: PCP Family Medicine; Visit Provider Physician Assistant Medical
DX: R11.0 Nausea (principal); Z20.822 Contact with and (suspected) exposure to COVID-19
CPT/HCPCS: U0003

== ENCOUNTER 2020-12-05 00:59 | Outpatient (CLI) | payer OTHER, SELFPAY ==
--- NOTE | 2020-12-05 | DI.US_ITS ---
EXAM: US ABDOMEN CLINICAL HISTORY: RUQ ABD PAIN, R10.11 TECHNIQUE: Ultrasound abdomen performed using standard protocol. COMPARISON: No exams were available for comparison FINDINGS: ABDOMINAL AORTA AND IVC: Visualized portions normal caliber. PANCREAS: Normal where visualized. LIVER: Normal. Hepatopedal flow in the Portal Vein. The liver measures 18.4 cm in length. GALLBLADDER: No evidence of cholelithiasis. No evidence of wall thickening. No pericholecystic fluid identified. BILIARY SYSTEM: Common bile duct measures < 7 mm. No intrahepatic biliary ductal dilation. BRYSON'S SIGN: Negative. KIDNEYS: Kidneys are symmetric in size. No evidence of renal calculi. No evidence of hydronephrosis. No renal mass or cyst identified. SPLEEN: Not enlarged. ASCITES: None seen. IMPRESSION: Mild hepatomegaly. Otherwise unremarkable abdominal ultrasound. DATA REPOSITORY:
== END 2020-12-05 01:00 | disposition home or self-care (01) ==
LOC: DI 00:59
PROVIDERS: PCP Family Medicine; Visit Provider Physician Assistant Medical
DX: R16.0 Hepatomegaly, not elsewhere classified (principal)
CPT/HCPCS: 76700

== ENCOUNTER 2020-12-05 03:10 | Outpatient (CLI) | payer OTHER, SELFPAY ==
[2020-12-05 10:23] LABS: Abs Immature Grans 0.01 10^3/uL (0.0-0.06); Absolute Basophil Count 0.04 10^3/uL (0.0-0.2); Absolute Eosinophil Count 0.43 10^3/uL (0.0-0.7); Absolute Lymphocyte Count 1.65 10^3/uL (1.2-3.4); Absolute Monocyte Count 0.47 10^3/uL (0.1-0.8); Absolute Neutrophil Count 3.72 10^3/uL (1.2-6.7); Basophils % 0.6; Eosinophils % 6.8; HCT 45.7 % (40.0-50.0); HGB 15.5 g/dL (13.5-17.5); Immature Grans % 0.2; Lymphocytes % 26.1; MCH 31.6 pg (27.0-33.0); MCHC 33.9 % (32.0-36.0); MCV 93.1 fL (80-95); MPV 9.9 fL (8.0-11.0); Monocytes % 7.4; Neutrophils % 58.9; Nucleated RBC 0 %; Platelet Count 241 10^3/uL (130-400); RBC 4.91 10^6/uL (4.36-5.78); RDW 13.6 % (11.8-14.1); RDW-SD 46.5 fL; WBC 6.32 10^3/uL (4.4-10.8)
[2020-12-05 11:05] LABS: ALT 34 U/L (16-63); AST 12 U/L (15-37); Alkaline Phosphatase 80 U/L (46-116); Anion Gap 6.7 mmol/L (3-11); BUN 15 mg/dL (7-18); Bilirubin, Total 0.5 mg/dL (0.2-1.0); CO2 29.3 mmol/L (21.0-32.0); CREATININE 1.1 mg/dL (0.70-1.30); Calcium 9.4 mg/dL (8.5-10.1); Chloride 104 mmol/L (98-107); Glucose 92 mg/dL (74-106); Potassium 4.3 mmol/L (3.5-5.1); Sodium 140 mmol/L (136-145); Total Protein 7.2 g/dL (6.4-8.2)
== END 2020-12-05 03:11 | disposition home or self-care (01) ==
LOC: LBO 03:10
PROVIDERS: PCP Family Medicine; Visit Provider Physician Assistant Medical
DX: K29.70 Gastritis, unspecified, without bleeding (principal); R10.11 Right upper quadrant pain
CPT/HCPCS: 36415; 80053; 85025

== ENCOUNTER 2020-12-15 02:35 | Outpatient (CLI) | payer OTHER, SELFPAY ==
[2020-12-15 17:44] LABS: Lipase 81 U/L (73-393)
== END 2020-12-15 02:36 | disposition home or self-care (01) ==
LOC: LBO 02:35
PROVIDERS: PCP Family Medicine; Visit Provider Family Medicine
DX: R10.9 Unspecified abdominal pain (principal)
CPT/HCPCS: 36415; 83690

== ENCOUNTER 2021-02-28 09:51 | Emergency (ER) | payer OTHER, SELFPAY ==
[2021-02-28] VITALS (24 sets, daily range): BP systolic 108–130; BP diastolic 69–88; PULSE 52–86; RESP 13–22; TEMP 36.7–36.9; O2SAT 97–100
--- NOTE | 2021-02-28 10:00 | DI.CT_ITS ---
EXAM: CT HEAD WO CLINICAL HISTORY: Seizure like activity, muscle weakness. TECHNIQUE: Imaging Protocol: Axial computed tomography images with coronal and sagittal reformatted images were created and reviewed COMPARISON: CT CT HEAD FOR STROKE PROTOCOL from 06/19/2019 FINDINGS: There are no skull fractures nor fluid in the visualized paranasal sinuses. There is no evidence of intracranial hemorrhage, mass effect, or shift of midline structures. There are no extra-axial fluid collections. The ventricles are not enlarged or shifted and there is no blo od within the ventricular system nor within the basal cisterns. IMPRESSION: No acute intracranial findings on this noninfused CT scan of the brain. No significant change compar ed to prior CT scan June 2019. RADIATION DOSE DELIVERED: 889.12mGy.cm Total DLP DATA REPOSITORY: All CT scans at this facility are submitted to the National Radiology Data Registry (NRDR) Dose Index Registry (DIR) with the [employer] (ACR). RADIATION OPTIMIZATION: All CT scans at this facility use at least one of these dose optimization te chniques: automated exposure control; mA and/or kV adjustment per patient size (includes targeted exa ms where dose is matched to clinical indication); or iterative reconstruction.
--- NOTE | 2021-02-28 10:06 | W.ED.GENAD ---
Discharge Plan Disposition Patient Disposition: HOME Condition: Stable Discharge Details Clinical Impression: Seizure-like activity Primary Care Provider: Ankur Sargent ED Provider: Betty Ordoñez Home Meds and New Rx's Prescriptions: Continued ibuprofen 200 mg tablet 600 mg PO Q6H PRNRF: 0 buspirone 5 mg tablet 5 mg PO QHS Qty: 180 RF: 3 omeprazole 40 mg capsule,delayed release(DR/EC) 40 mg PO DAILY Qty: 30 RF: 0 albuterol sulfate [ProAir HFA] 90 mcg/actuation HFA aerosol inhaler 2 puff IH Q6H PRN (Reason: shortness of breath or wheezing) Qty: 18 RF: 0 Discharge Instructions Instructions: Recurrent Seizures in Adults (ED) Additional Instructions: At this time you are placed on a care management list for follow-up with neurology. You may need further evaluation and work-up. Please return to the ER immediately for any fever, worsening weakness, recurrent seizure-like activity or any concerns. Please follow-up with your primary care provider within 3 to 5 days. Referrals: Ankur Sargent DO [Primary Care Provider] - Medical Decision Making 30-year-old male presents to the ER via EMS status post seizure-like activity which occurred this morning prior to arrival. Patient states that he was in bed, he was aware and awake throughout episode. It was an unwitnessed episode with unknown duration. Patient states that he was shaking and had significant weakness afterwards and body aches. He reports having a sleep study done Friday night and was sleep deprived at that time. He also endorses diarrhea which began yesterday. He denies any shortness of breath, chest pain no cough, denies any fever, no nausea, vomiting. Denies any dysuria or problems urinating. He has no injuries noted from the episode. Did not bite his tongue denies any loss of bowel or bladder control. He has never had an official seizure diagnosis and does not take any antiepileptics. He does have a past medical history of periodic limb movement, vertigo, postconcussive syndrome, depression, anxiety, migraine headaches with aura, mood swings, high cholesterol. At this time labs ordered including CBC, CMP, TSH, urinalysis, urine drug screen, head CT without contrast. Upon record review patient did see neurology Dr. Lewis September 2020 and had a telehealth visit in November of this year. At that time he was having some eye twitching. He also has had an negative noncontrast MRI of brain in February 2019. 1203: CBC is within normal limits no leukocytosis, CMP is also within normal limits. Urinalysis shows no evidence of UTI no nitrites no leukocytes urine drug screen is negative. Upon patient reevaluation his weakness has improved to his lower extremities. Upon entering room he is playing on a cell phone. He remains alert and oriented x4 throughout stay. He states that he feels tired but no other symptoms. He has had no other seizure activity while being in the emergency department. 1206: Will page Julianne Arriaza for consult. 1238: Spoke with Dr. Lewis regarding patient she recommends follow-up in the clinic for further evaluation. Discussed home care and strict return instructions he verbalizes understanding. This text was generated using [employer] system, please disregard any oddities of phrase or misspellings. HPI General Mode of arrival: EMS. Date/Time Provider Initiated Documentation: 02/28/21 10:01. Limitations to Documentation: no limitations. Information obtained by: patient, EMS, RN notes reviewed and old records reviewed. HPI Narrative: 30-year-old male presents to the ER via EMS status post seizure-like activity which occurred this morning prior to arrival. Patient states that he was in bed, he was aware and awake throughout episode. It was an unwitnessed episode with unknown duration. Patient states that he was shaking and had significant weakness afterwards and body aches. He reports having a sleep study done Friday night and was sleep deprived at that time. He also endorses diarrhea which began yesterday. He denies any shortness of breath, chest pain no cough, denies any fever, no nausea, vomiting. Denies any dysuria or problems urinating. He has no injuries noted from the episode. Did not bite his tongue denies any loss of bowel or bladder control. He has never had an official seizure diagnosis and does not take any antiepileptics. He does have a past medical history of periodic limb movement, vertigo, postconcussive syndrome, depression, anxiety, migraine headaches with aura, mood swings, high cholesterol. Related Data Home Medications Medication Instructions Recorded Confirmed ibuprofen 200 mg tablet 600 mg PO Q6H PRN tab 05/31/20 11/20/20 albuterol sulfate 90 mcg/actuation 2 puff IH Q6H PRN #18 gm 06/15/20 11/20/20 aerosol inhaler buspirone 5 mg tablet 5 mg PO QHS #180 tab 11/27/20 11/27/20 omeprazole 40 mg capsule,delayed 40 mg PO DAILY #30 cap 12/08/20 12/08/20 release Previous Rx's Medication Instructions Recorded albuterol sulfate 90 mcg/actuation 2 puff IH Q6H PRN #18 gm 06/15/20 aerosol inhaler buspirone 5 mg tablet 5 mg PO QHS #180 tab 11/27/20 omeprazole 40 mg capsule,delayed 40 mg PO DAILY #30 cap 12/08/20 release Allergies Allergy/AdvReac Type Severity Reaction Status Date / Time methadone Allergy Severe seizure Verified 02/28/21 09:57 house dust Allergy Intermediate Wheezing Verified 02/28/21 09:57 Fish Containing Products AdvReac nausea/loose Verified 02/28/21 09:57 stools General Stated Complaint: Seizure SKIP: 3 Review of Systems Narrative: Constitutional: Negative for weight loss, alert and oriented, well groomed, normal body habitus, appears comfortable. HEENT: Denies trauma, headaches, blurry vision, nasal discharge, sore throat, trouble swallowing. Chest: Denies chest pain, palpitations, irregular rhythm, hypertension. Respiratory: Denies Shortness of breath, cough, hemoptysis. GI: Denies abdominal pain, nausea, vomiting, constipation. Positive diarrhea began yesterday. : Denies dysuria, hematuria, flank pain, rectal bleeding. Neuro: Denies dizziness, blurry vision, syncope, headache or facial numbness. Reports seizure-like activity this morning. No loss of consciousness. Has bilateral lower extremity generalized weakness. Hematologic: Denies easy bruising, intolerance to heat or cold, hair loss. [facility] Medical History Anxiety Anxiety and depression Asthma BMI 34.0-34.9,adult (11/05/17) 2018: 34.4 Chronic back pain (03/29/15) Normal MRI 11/2014 Chronic headaches Cigarette nicotine dependence without complication (05/13/18) Dependent edema Depression (03/29/15) H/O alcohol abuse sober since 2015 High cholesterol Postconcussive syndrome Shingles (07/04/13) Surgical History Excision, Pilonidal Cyst (11/03/09) Tonsillectomy and adenoidectomy [facility] Family History Mother Diabetes Anxiety Arthritis Depression Father Heart disease Sister Asthma Grandfather Emphysema lung Grandmother No problems noted. Social History Smoking/Tobacco Use Status: Current every day Tobacco Type: cigarettes Years smoked: 21 Quit status: considering quitting Smoking risk assessment performed?: Yes Alcohol Intake: never Previous attempts at quittin Drug use: Never Substance use type: does not use Household members: family Housing: apartment Number of Children: 0 current occupation: works at [employer] What type of physical activity do you participate in: walking Duration: 15-30 minutes/day Frequency: 5-6 times per week Water heater temp set <120 deg: Yes Working smoke detector in home: Yes Fire extinguisher in home: Yes Do you feel safe at home: Yes Do you feel safe in your relationship?: Yes Exam Narrative Exam Narrative: Constitutional: Alert and oriented x4. Appears stated age. Normal body habitus. Head: Normocephalic, no trauma. Eyes: Pupils PERRLA, Red reflex noted, EOM's intact. Eyelids symmetrical without lesions, discharge, or swelling. ENT: Bilateral TM's WNL, External ear normal to inspection, no mastoid TTP, swelling, or erythema, Nasal turbinates WNL, no nasal discharge. Normal dentition, Posterior pharynx WNL, no exudate. No intraoral trauma. Chest: RRR, Normal S1, S2, distal pulses intact. Resp: Lungs clear to auscultation bilaterally, no wheezes, rales, or rhonchi. Musculoskeletal: Unable to assess gait. Skin: No suspicious rashes or lesions. Capillary refill less than 2 sec. Neurologic: Cranial nerves II-XII intact. Alert and oriented x 4. Strength 4+ bilaterally upper extremities, 3+ bilaterally lower extremities. Sensation is intact bilateral lower extremities. Hematologic/Lymphatic: No ecchymosis, no lymphadenopathy. Course Vital Signs Vital signs: Vital Signs Temperature 36.9 C 02/28/21 09:51 Pulse 69 02/28/21 09:51 Respiratory Rate 16 02/28/21 09:51 Blood Pressure 130/88 02/28/21 09:51 Pulse Oximetry 100 02/28/21 09:51 Temperature 36.9 C 02/28/21 09:51 Temperature Source Skin 02/28/21 09:51 Pulse 69 02/28/21 09:51 Respiratory Rate 16 02/28/21 09:51 Respiratory Effort 02/28/21 10:02 Respiratory Depth Normal 02/28/21 10:02 Respiratory Pattern Normal 02/28/21 10:02 Blood Pressure 130/88 02/28/21 09:51 Blood Pressure Position Sitting 02/28/21 09:51 Pulse Oximetry 100 02/28/21 09:51 Oxygen Delivery Method Room Air 02/28/21 09:51 Oxygen Flow Rate 0 02/28/21 09:51
[2021-02-28] MEDS: Normal Saline 1,000 ML 1000 ML IV (10:15)
[2021-02-28 10:21] LABS: Abs Immature Grans 0.01 10^3/uL (0.0-0.06); Absolute Basophil Count 0.04 10^3/uL (0.0-0.2); Absolute Eosinophil Count 0.58 10^3/uL (0.0-0.7); Absolute Lymphocyte Count 1.76 10^3/uL (1.2-3.4); Absolute Monocyte Count 0.49 10^3/uL (0.1-0.8); Absolute Neutrophil Count 3.81 10^3/uL (1.2-6.7); Basophils % 0.6; Eosinophils % 8.7; HCT 45.7 % (40.0-50.0); HGB 15.5 g/dL (13.5-17.5); Immature Grans % 0.1; Lymphocytes % 26.3; MCH 31.4 pg (27.0-33.0); MCHC 33.9 % (32.0-36.0); MCV 92.7 fL (80-95); MPV 9.5 fL (8.0-11.0); Monocytes % 7.3; Nucleated RBC 0 %; Platelet Count 253 10^3/uL (130-400); RBC 4.93 10^6/uL (4.36-5.78); RDW 12.9 % (11.8-14.1); RDW-SD 44.1 fL; WBC 6.69 10^3/uL (4.4-10.8)
--- OUTSIDE RECORDS SUMMARY | 2021-02-28 10:24 | XMS_ITS ---
:1990 Author Care Team Providers Name Role Phone ROOSEVELT BORRERO ([facility]) Primary Care Provi munir [phone] [facility] MEDICAL RECORDS Primary Care Provider [phone] Allergies Code Code System Name Reaction Severity Status Onset 1826 RxNorm Buspirone ? ? Active ? Fish Containing ? ? Active ? Products 418802 RxNorm House Dust ? ? Active ? 6813 RxNorm Methadone ? ? Active ? 435 RxNorm Albuterol ? ? Deactivated ? 5640 RxNorm Ibuprofen ? ? Deactivated ? Medications Name Status Start Date Stop Date ? ? albuterol sulfate HFA 90 mcg/actuation Active ? Not available aerosol inhaler buspirone 5 mg tablet Active ? Not availa ble Problems Name Status Onset Date Source ? Hypercholesterolemia Active 12/11/2020 ? Obesity Active 12/11/2020 ? Anxiety Active 12/11/2020 ? Alcohol Abuse Active 12/11/2020 ? Tobacco User Active 12/11/2020 ? Depressive Disorder Active 12/11/2020 ? Asthma Active 12/11/2020 ? Headache Active 12/11/2020 ? Attention Deficit Hyperactivity Disorder Active 021 ? Procedures None recorded. Results Lab Results None recorded. Past Encounters 01/08/2021 Snoring; Periodic Limb Movement Disorder ; Depressive Disorder Harmeet Zhu MD, Board Certified Sleep Ph ysician: [address] [place] [address] [address], [place] [address], Ph. Social History Tobacco Smoking Status Current Every Day Smoker Notes: 6 ciggs a day Vaccine List None recorded. Plan of Care Patient Instructions We discussed signs and symptoms you are exhibiting that may be due to Obstructive Sleep Apnea or other sleep disorders. We went over sleep conditions that I suspect you may have that will benefit f rom further evaluation. The next step is to diagnose your sleep disorder through sleep study testing. We will get permission from your insurance to do the sleep study. Call us back in 2 to 3 weeks if yo u do not get a call from us about schedu ling your sleep study. Bring all your home medications to the sleep study including any sleep aids. Please call [facility] if you ar e not able to make it to your sleep study. Please call us with your insurance card and number [facility] when get it! Reminders Provider Appointments None recorded. ? ? Lab None recorded. ? ? Referral None recorded. ? ? Procedures None recorded. ? ? Surgeries None recorded. ? ? Imaging None recorded. ? ? Vitals Height Weight BMI Blood Pressure 177.8 cm 97.3 kg 30.8 kg/m2 136/71 mm[Hg]
--- OUTSIDE RECORDS SUMMARY | 2021-02-28 10:24 | XMS_ITS | Encounter Summary ---
:1990 Author Care Team Providers Name Role Phone Ankur Sargent ([facility] Internal Medicine) Primary Care Provi munir [phone] [facility] Medical Records Primary Care Provider [phone] Reason for Visit SLEEP CLINIC New Adult Patient Assessment and Plan Assessment Note I provided greater than 60 minutes in t he care of this patient, more than half the time was spent in [id number] counseling. 1. 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 patient also reports very restless slee p, sheets messy, and restlessness in legs that gets worse in evenings. currently not on rls meds. Comorbidities include asthma, anxiety, d epression with chronic SI (but no plan), obesity, tobacco user (6 to 10 ppd plan to finish last cig TODAY), tonsils removed , ADHD (ritalin made SI worse) We had a thorough discussion of Obs tructive Sleep Apnea, including pathophysiology, associated longterm cardiovascular, neurocognitive, and overall health effects, and importance of treatment. Adhere to drowsy driving precautions as applicable. Proceed with Diagnostic Polysomnogra m. In-facility sleep study requested due to extremely restless legs and inability to keep home sleep study equpment on. Pt does not think he can do HST. Also req uested due to uncontrolled depression an d anxiety ? sleep study, baseline diag nostic polysomnogram - Patient currently does not have active insurance. He is working on reinstating his [facility] insurance and/or apply for [facility] fin assistance. He does n ot have enough to self pay for sleep study so needs to have payment plan in place befo re he schedules. Obtain supine and lateral position sleep for comparison. Document snoring intensity. Document medications taken on night of sleep study. 2. Periodic limb movement disord er 01/08/21: reviewed Dec 2020 labs , no ferritin, tsh, vit D or B12 levels. will request last 12 months labs, if none, co nsider getting this breanne if his insurance issue straightens out 3. Depressive disorder 01/08/21: depression that sounds life long and says he chronically gets suicidal ideation but not plan/thoughts of actually carrying it out. says he sees his mom telling him he can't do thi s if he tries to even think of acting out on SI. he says he only attempted suicide on ce 10 years ago around age 19 and put plastic bag w/ duct tape around his neck/head, s aw his mom (still alive then) pop up in his head and pulled off the tape moisés. he se es counselor Floresita Wharton and says he is open with Dr Sargent w/ his mood struggles tho he says he hasnt neccessarily been up front about his suicidal ideations. I did meng g up taking Rx meds and talking mor w/ his primary care physician but pt does not w bree to do so at this time. ? learning about mood disord ers Discussion Note Remember to always take precautio ns on drowsy driving. 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 Research suggests taking a power nap (15 to 20 dionne kirk) and/or coffee (or caffeine containi ng food such as dark chocolate) may be effective aides. As always, you should use your judgement on whether to drive at all, if you are sleep deprived or feeling sleepy. Thank you for the kind opportunity to p articipate in your medical care. You expressed good understanding of your diagnosis and treatment, and agreed to proceed with the plan we discussed together. If y ou have any questions or concerns prior to your next appointment, please call Sleep Clinic. Plan of Care Patient Instructions We discussed [...] MOISÉS when get it! Reminders Provider Appointments Office 30 03/19/2021 Harmeet Zhu MD, 9:00AM Board Certified Sleep Physician Lab None ? ? recorded. Referral None ? ? recorded. Procedures None ? ? recorded. Surgeries None ? ? recorded. Imaging None ? ? recorded. Medications Name Start Date ? ? albuterol sulfate HFA 90 mcg/actuation aerosol inhaler ? buspirone 5 mg tablet ? Medications Administered None recorded. Vitals Height Weight BMI Blood Pressure 5 ft 10 in 214.5 lbs 30.8 kg/m2 136/71 mm[Hg] Results Lab Results None recorded. Allergies Code Code System Name Reaction Severity Onset 1826 RxNorm Buspirone ? ? ? Fish Containing ? ? ? Products 363615 RxNorm House Dust ? ? ? 6813 RxNorm Methadone ? ? ? Problems Name Status Onset Date Source ? Hypercholesterolemia Active 12/11/2020 ? Obesity Active 12/11/2020 ? Anxiety Active 12/11/2020 ? Alcohol Abuse Active 12/11/2020 ? Tobacco User Active 12/11/2020 ? Depressive Disorder Active 12/11/2020 ? Asthma Active 12/11/2020 ? Headache Active 12/11/2020 ? Attention Deficit Hyperactivity Disorder Active 021 ? Procedures None recorded. Vaccine List None recorded. Social History Tobacco Smoking Status Current Every Day Smoker Notes: 6/ 10 ciggs a day Alcohol intake None Live alone or with others? with others Are you currently employed? Y Blind or serious difficulty Y Notes: we ars glasses seeing Hard of hearing or deaf in one N or both ears? Caffeine intake None Drug Use N Functional Status Blind or serious Yes difficulty seeing? Past Encounters 01/08/2021 Snoring; Periodic Limb Movement Disorder ; Depressive Disorder Harmeet Zhu MD, Board Certified Sleep Ph ysician: [address] [place] [address] [address], [place] [address], Ph. History of Present Illness Note: <p><strong>Sleep Medicine New Patient Consult</strong>

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

Past medical history includes <span> a</span><span>s</span ><span>t</span><span>h</span><span>ma</span& gt;, anxiety, depression with chronic SI (but no plan), obesity, tobacco user (6 to 10 ppd plan to finish last cig TODAY), tonsils removed , ADHD (ritalin made SI worse)

<strong>PREVIOUS SLEEP EVALUATION: </strong>{{None # Reviewed in detail and summarized as follows: Records not available, requested. Records not available. None. }}

<strong>CHIEF COMPLAINT/HISTORYOF PRESENT ILLNESS: </strong>
Patients reports biggest problem with sleep is poor sleep since he was a child. mood can be very labile. difficulty with concentration.

<strong>SLEEP SCHEDULE:</strong> Bedtime {{10# }} {{pm# am}}, Sleep onset latency {{1or more hours# less than 30 30 to 60 greater than 60 variable}} , Awakenings {{1 to 2 # 0-2 variable}} times per night, Able to fall back asleep within {{few minutes # up to 30 minutes up to few hours variable}}, Wake time {{5:30 to 6# }} {{am# pm}}. Naps {{None regularly # Rare Occasionally Nearly Everyday Everyday}}.

<strong>SLEEP ENVIRONMENT:</strong> {{Pets wake patient up. Children wake patient up. Noise from outside room wake patient up. Light wakes patient up. No environmental disruptions identified. *}}

<strong>SLEEP QUALITY:</strong> {{Poor# Fair Very good Adequate Very poor}}

<strong>DAYTIME/NEUROCOGNITIVE FUNCTION:</strong> {{Low energy# Sleepy Alert}} to sleepy. {{Problems with memory Problems with memory, concentration and mood* No problems with memory, concentration, mood}}. labile mood.

<strong>SLEEP RELATED THOUGHTS/BEHAVIORS:</strong> {{Deny insomnia related thought patterns or behaviors, except [place] active mind. * Stressful thoughts interf ering with sleep. Tendency to clock watch. Worry about getting good night sleep. }}. {{[place] active mind. Stressful thoughts interfering with sleep. * Tendency to clock watch. Worry about getting good night sleep.}} {{Stressful thoughts interfering with sleep. Tendency to clock watch. Worry about getting good night sleep. *}} {{.# Tendency to clock watch. Worry about getting good night sleep.}} {{.# Worry about getting good night sleep. }}

<strong>SLEEP BREATHING:</strong> {{Snoring.* Witnessed apneas.}} {{Witnessed apneas.* Waking up gasping for air.}} {{.# Witnessed apneas. Waking up gasping for air.}} {{.# Mouth breathing. Chronic nasal congestion.}} {{Chronic nasal congestion.*}}

<strong>LEG SYMPTOMS:</strong> {{ Legs movebefore sleep and/or during sleep.*}} {{Leg movements are worse in evenings.*}} {{Relieved by movement.*}} {{.# Relieved by counterpressure.}} {{NO Leg cramps# Leg cramps especially in evening.}} {{Tossand turn at night.* Sheets are messy after sleep.}} {{Sheets are messy after sleep.*}}

<strong>MOVEMENT SYMPTOMS</strong>{{No sleepwalking # Sleeptalk. Sleepwalk: }}.

<strong>DREAM SYMPTOMS:</strong> {{Deny dream enacting behavior # Dream enactment behavior: }}. {{ See dreams in room when waking up or falling asleep: *}}. {{ Disturbing nightmares* Recurring nightmares}} dont remember content, but wake up suddenly and feel itwas from bad dream, feel scared. has PTSD from his mom dying. when trying to go to sleep, closes hereyes, see his mom in his head.

<strong>WEAKNESS SYMPTOMS:</strong> {{Deny cataplexy related symptoms # Muscles suddenly become weak triggered by emotion Muscles may feel weak but no emotional triggers known}} {{Deny sleep paralysis # Experienced inability to move uponwaking up in remote past Experiences inability to move upon waking up on regular basis}}.

<strong>DRIVING:</strong> {{Nodding off during driving, couple times in his life# Experienced drowsy driving in past related to sleep deprivation Intermittent drowsy driving episodes Regular drowsy driving episodes}}. {{.# Follows drowsy driving precautions. Aware of drowsy driving precautions and plans to follow them.}}

<strong>OTHER PERTINENT SYMPTOMS: </strong>
wake up with dry mouth
</p><p>teeth grinding/clenchin g
</p><p>jaw pain
</p><p>missing teeth
</p><p>freq cough
</p><p>sobe
</p><p>nausea<br& gt;</ p><p>vomiting
</p><p>diarrhea
</p>& lt;p>abd cramps&lt ;br></p><p>headaches
</p><p>numbness/tinglin g
</p><p>muscle weakness in hands
</p><p>claustrophobia
</p><p >joint pains arms, fingers, msucle weakness in hands
</p><p>back pain
</p><p>head injury jul 2020 - severe concussion - saw Dr Mendez
</p& gt;<p>
<strong>PRODUCT/SUBSTANCE USE:</strong>{{Current Smoker, plan to QUIT TODAY# No smoking No smoking, quit in remote past No smoking quit recently Current Smoker}}. {{.# Contemplating quitting Ready to quit Not interested in quitting}}. {{No alcohol use* 1-2 alcohol drinks daily 3+ alcohol drinks daily Variable alcohol use}}. {{No regular illicit drug use# RecreationalMJ use Medical MJ use Rare MJ use Cocaine Heroin/Non-prescribed Opiate}}.

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 completed high school.</p> Review of Systems ? Notes: A 14-point <strong>REVIEW OF SYSTEM</strong> was obtained and reviewed, includes CONSTITUTIONAL, EYE S, ALLERGY, NEUROLOGIC, ENDOCRINE, GI, CARDIOVASCULAR, SKIN, MSK, E NT, , RESPIRATORY, HEMATOLOGIC, PSYCH systems. Pertinent symptoms are discu ssed in history, otherwise negative. Physical Exam ? Notes: <p>GENERAL: {{well appearing # chronically ill appearing}}, appearing {{stated# older than younger than}} age, no acute distress, {{mild obese# normal tall lean}} bu ild
HEENT: atraumatic skull, moist mucous membranes, Mallampati 2, mac roglossia, missing most upper teeth and some lower, retrognathia
PSYCH IATRIC: well groomed, fluent speech, good insight, linear thought process, good eye contact, {{balanced# flat}} affect
NEUROLOGIC: alert, oriented, symmetric facial expression

<stron g>Clinical Data Reviewed:</strong>

1. {{Modified Pediatric Guthrie Sleepiness Scale Guthrie Sleepiness Scale*}}: _10_ out of {{24# 21 due to not driving}}.

2. [place] Questionnaire positive for {{3# 0 1 2}} ou t of 3 Categories.

3. {{No sleep study reports# Sleep study results as above. Sleep study results not available, requested Unable to obtain s leep study reports}}

4. {{No pertinent labs available. # Lab results as outlined. Labs pending.}}

5. {{Sleep log not filled. # Sleep log revi ewed, consistent with history. Sleep log reviewed. }}</p>
[2021-02-28 10:43] LABS: ALT 40 U/L (16-63); AST 18 U/L (15-37); Albumin 3.9 g/dL (3.4-5.0); Alkaline Phosphatase 73 U/L (46-116); Anion Gap 5.3 mmol/L (3-11); BUN 10 mg/dL (7-18); Bilirubin, Total 0.6 mg/dL (0.2-1.0); CO2 29.7 mmol/L (21.0-32.0); Calcium 9.3 mg/dL (8.5-10.1); Chloride 104 mmol/L (98-107); Glucose 90 mg/dL (74-106); Magnesium 1.8 mg/dL (1.8-2.4); Potassium 4.5 mmol/L (3.5-5.1); Sodium 139 mmol/L (136-145); TSH 1.61 uIU/mL (0.36-3.74); Total Protein 7.5 g/dL (6.4-8.2)
--- NOTE | 2021-02-28 11:26 | NUR.NOTE ---
Pt remains alert and oriented. Stood at bedside to void.
[2021-02-28 11:30] LABS: Bilirubin Negative (Negative); Blood Negative (Negative); Clarity Clear (Clear); Glucose Negative (Negative); Ketones Negative (Negative); Leukocyte Esterase Negative (Negative); Nitrite Negative (Negative); Urobilinogen 0.2 EU/dL (Up TO 0.2); pH 6.5 (5-8)
[2021-02-28 11:45] LABS: *AMPHETAMINES SCREEN URINE Negative (Negative); *BARBITURATES SCREEN URINE Negative (Negative); *BENZODIAZEPINES SCREEN URINE Negative (Negative); Cannabinoids THC Negative (Negative); Cocaine Screen,Urine Negative (Negative); METHADONE URINE SCREEN Negative (Negative); OPIATES URINE SCREEN Negative (Negative)
[2021-02-28 11:46] LABS: Tricyclic Antidepressants Negative (Negative)
--- NOTE | 2021-02-28 16:20 | NUR.NOTE ---
Nursing Note: faxed refferral to neuro. MG
== END 2021-02-28 12:48 | disposition home or self-care (01) ==
PROVIDERS: Emergency Provider Registered Nurse Emergency; PCP Family Medicine
DX: R56.9 Unspecified convulsions (principal); R53.1 Weakness
CPT/HCPCS: 80053; 80307; 96360; 99284; 70450; 81003; 83735; 84443; 85025

== ENCOUNTER 2022-01-02 00:52 | Outpatient (CLI) | payer MEDICAID, SELFPAY ==
--- NOTE | 2022-01-02 07:30 | DI.RAD_ITS ---
Exam(s) XR SHOULDER RT COMPLETE 2+V EXAM: XR SHOULDER RT COMPLETE 2+V CLINICAL HISTORY: Evaluate for arthritis,tendinitis rt rotator cuff,m75.81 TECHNIQUE: COMPARISON: No exams were available for comparison FINDINGS: Five views were obtained. No bony or soft tissue abnormality is seen. Cartilaginous joint space of the glenohumeral joint appears well maintained. No abnormal soft tissue calcifications. IMPRESSION: Negative examination of the shoulder. RADIATION DOSE DELIVERED: Total DLP
== END 2022-01-02 01:12 ==
PROVIDERS: PCP Family Medicine; Visit Provider Family Medicine
DX: M75.81 Other shoulder lesions, right shoulder (principal)
CPT/HCPCS: 73030

== ENCOUNTER 2022-04-15 14:06 | Emergency (ER) | payer MEDICAID, SELFPAY ==
[2022-04-15] VITALS (23 sets, daily range): BP systolic 106–123; BP diastolic 59–73; PULSE 72–108; RESP 14–18; TEMP 36.7–37; O2SAT 96–97
--- NOTE | 2022-04-15 14:15 | RT.EKG_ITS ---
APPROVED REPORT Exam: Resting ECG Reason for Exam: sob Patient Location: E HR:95 bpm ECG Measurements Heart Rate 95 AXIS DE 147 P 46 QRSd 92 QRS 63 QT 340 T 16 QTc 428 Conclusion Sinus rhythm...normal P axis, V-rate 60- 99 no STEMI, non-diagnostic EKG I have reviewed and interpreted ECG and agree with software generated interpretation.
[2022-04-15] MEDS: Normal Saline 1,000 ML 1000 ML IV (15:09)
[2022-04-15] MEDS: LORazepam 1 MG TAB PO (15:09)
[2022-04-15 15:14] LABS: Abs Immature Grans 0.02 10^3/uL (0.0-0.06); Absolute Basophil Count 0.06 10^3/uL (0.0-0.2); Absolute Eosinophil Count 0.44 10^3/uL (0.0-0.7); Absolute Monocyte Count 0.48 10^3/uL (0.1-0.8); Absolute Neutrophil Count 4.84 10^3/uL (1.2-6.7); Basophils % 0.7; Eosinophils % 5.4; HCT 41.5 % (40.0-50.0); HGB 14.4 g/dL (13.5-17.5); Immature Grans % 0.2; Lymphocytes % 28.3; MCH 31.2 pg (27.0-33.0); MCHC 34.7 % (32.0-36.0); MCV 90 fL (80-95); MPV 9.5 fL (8.0-11.0); Monocytes % 5.9; Neutrophils % 59.5; Platelet Count 251 10^3/uL (130-400); RBC 4.62 10^6/uL (4.36-5.78); RDW 13.2 % (11.8-14.1); RDW-SD 42.9 fL; WBC 8.14 10^3/uL (4.4-10.8)
[2022-04-15 15:38] LABS: ALT 23 U/L (16-63); AST 8 U/L (15-37); Albumin 3.7 g/dL (3.4-5.0); Alkaline Phosphatase 80 U/L (46-116); BUN 18 mg/dL (7-18); Bilirubin, Total 0.3 mg/dL (0.2-1.0); CREATININE 1.2 mg/dL (0.70-1.30); Calcium 8.8 mg/dL (8.5-10.1); Chloride 103 mmol/L (98-107); Glucose 102 mg/dL (74-106); Magnesium 1.8 mg/dL (1.8-2.4); Potassium 3.8 mmol/L (3.5-5.1); Sodium 138 mmol/L (136-145); TSH (W/Ref FT4) 2.07 uIU/mL (0.36-3.74); Total Protein 6.9 g/dL (6.4-8.2); Troponin I < 50 ng/L (<or=60)
--- NOTE | 2022-04-15 16:00 | DI.RAD_ITS ---
Exam(s) XR PORTABLE CHEST AP EXAM: XR PORTABLE CHEST AP CLINICAL HISTORY: shortness of breath, pain. TECHNIQUE: 2D digital imaging was performed. COMPARISON: CR XR CHEST 2V PA LATERAL from 05/29/2020 FINDINGS: Single AP portable view. Heart size is upper normal. The mediastinum is not widened. Lungs are clear. No infiltrates nor obvious pleural effusions. Accessory azygos lobe on the right is again noted. IMPRESSION: No acute pulmonary findings on this single AP portable view of the chest. No significant change compared to 05/29/2020 DATA REPOSITORY: RADIATION DOSE DELIVERED: All CT scans at this facility use at least one of these dose optimization techniques: automated exposure control; mA and/or kV adjustment per patient size (includes targeted e xams where dose is matched to clinical indication); or iterative reconstruction.
--- NOTE | 2022-04-15 16:00 | RT.EKG_ITS ---
APPROVED REPORT Exam: Resting ECG Reason for Exam: 1600 Patient Location: E HR:87 bpm ECG Measurements Heart Rate 87 AXIS WA 158 P 45 QRSd 95 QRS 48 QT 359 T 10 QTc 433 Conclusion Sinus rhythm...normal P axis, V-rate 60- 99 Physician: no stemi
--- NOTE | 2022-04-15 16:09 | ED.GENADUL_ITS ---
Discharge Plan Disposition Patient Disposition: HOME Condition: Stable Discharge Details Clinical Impression: Shortness of breath, Anxiety Primary Care Provider: Ankur Sargent ED Provider: Betty Ordoñez Home Meds and New Rx's Prescriptions: Continued albuterol sulfate [ProAir HFA] 90 mcg/actuation HFA aerosol inhaler 2 puff IH Q6H PRN (Reason: shortness of breath or wheezing) Qty: 18 6RF buspirone 5 mg tablet 5 mg PO BID Qty: 180 1RF cyclobenzaprine 10 mg tablet 10 mg PO HS PRN (Reason: muscle spasm) Qty: 30 3RF naproxen 500 mg tablet See Rx Instructions .ROUTE .COMPLEX Qty: 60 0RF Dose Instruction: TAKE 1 TABLET BY MOUTH TWICE DAILY Rx Instructions: TAKE 1 TABLET BY MOUTH TWICE DAILY Discharge Instructions Additional Instructions: At this time the work-up yesterday was negative for anything life-threatening, there is no evidence that you are having a heart attack. At this time the official x-ray result has not returned I did however take a look at it and it does appear to be similar to the previous chest x-ray. Follow up with primary care provider in 3-5 days. Return to ED sooner if any worsening or concerns. Increase oral fluids. Please take Tylenol or Ibuprofen or similar with food every 4-6 hours as needed for pain and swelling. Thank you for allowing us to be involved in your care today. Referrals: Ankur Sargent DO [Primary Care Provider] - 1 week Discharge Data Discharge Date/Time-TO BE ENTERED AT DEPARTURE: 04/15/22 17:35 Medical Decision Making <KATLYN Mora - Last Filed: 04/16/22 10:22> EKG does not show acute abnormality Troponin negative and diagnostic labs reassuring Patient feeling great improvement after Ativan and bolus of normal saline Family history of early cardiac disease, father with reported history of [facility] at 42 in a patient who smokes tobacco, will order repeat troponin and EKG at 1800 and signed out to [facility] pending repeat troponin and EKG would likely discharge home catheter within normal limits Patient made aware regarding plan Resting comfortably in room at time of reassessment signed out to Betty Ordoñez pending repeat troponin, EKG, and CXR 1630: S[place]: Care assumed from provider (KATLYN Mora) Please see their initial HPI, PE, and documentation. Discussed patient details and case and pending workup and disposition. Patient is hemodynamically stable, and alert and oriented. At the time of signout pending serial troponin and chest x-ray. 1725: Patient reevaluation he did just have the chest x-ray which has been performed, repeat troponin is due at 1800. Patient is declining the second troponin at this time and he states that he would just like to be discharged home. Patient will be discharged. Chest x-ray shows no active cardiopulmonary disease. Patient was discharged requesting to leave prior to the official result. He was alert oriented and ambulatory upon discharge. Patient remained Hemodynamically stable throughout stay. This text was generated using [facility] system, please disregard any oddities of phrase or misspellings. Medical Records Medical records reviewed: Yes I reviewed the patient's medical records. Lab Data Lab results reviewed: Yes I reviewed the patient's lab results. <Betty Ordoñez - Last Filed: 04/15/22 23:42> EKG does not show acute abnormality Troponin negative and diagnostic labs reassuring Patient feeling great improvement after Ativan and bolus of normal saline Family history of early cardiac disease, father with reported history of VA at 42 in a patient who smokes tobacco, will order repeat troponin and EKG at 1800 and signed out to [facility] pending repeat troponin and EKG would likely discharge home catheter within normal limits Patient made aware regarding plan Resting comfortably in room at time of reassessment 1630: [place]: Care assumed from provider (KATLYN Mora) Please see their initial HPI, PE, and documentation. Discussed patient details and case and pending workup and disposition. Patient is hemodynamically stable, and alert and oriented. At the time of signout pending serial troponin and chest x-ray. 1725: Patient reevaluation he did just have the chest x-ray which has been performed, repeat troponin is due at 1800. Patient is declining the second troponin at this time and he states that he would just like to be discharged home. Patient will be discharged. Chest x-ray shows no active cardiopulmonary disease. Patient was discharged requesting to leave prior to the official result. He was alert oriented and ambulatory upon discharge. Patient remained Hemodynamically stable throughout stay. This text was generated using [facility] system, please disregard any oddities of phrase or misspellings. HPI <KATLYN Mora - Last Filed: 04/16/22 10:22> General Date/Time Provider Initiated Documentation: 04/15/22 14:40 . HPI Narrative: This is a 31-year-old male who presents with paresthesias to bilateral upper extremities and shortness of breath which occurred while he was working. 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 He states that his coworker did not have any symptoms. He denies any chest pain but states his chest felt slightly tight. He denies any numbness. He denies perioral tingling. He denies headache. He denies any dizziness but does state he felt very lightheaded. He denies any falls or injuries. He denies any persistent strength or sensation change. He states he does have a history of anxiety but has not felt like this before his visit. He denies any new medications. He denies any recent flights, surgeries, long drives. He denies any calf pain or swelling. Related Data Home Medications Medication Instructions Recorded Confirmed cyclobenzaprine 10 mg tablet 10 mg PO HS PRN muscle spasm #30 01/03/22 04/15/22 tabs naproxen 500 mg tablet See Rx Instructions .Route 02/12/22 04/15/22 .COMPLEX #60 tabs albuterol sulfate 90 mcg/actuation 2 puff inhalation Q6H PRN 03/08/22 04/15/22 aerosol inhaler (ProAir HFA) shortness of breath or wheezing #18 grams buspirone 5 mg tablet 5 mg PO BID #180 tabs 03/08/22 04/15/22 Previous Rx's Medication Instructions Recorded cyclobenzaprine 10 mg tablet 10 mg PO HS PRN muscle spasm #30 01/03/22 tabs naproxen 500 mg tablet See Rx Instructions .Route 02/12/22 .COMPLEX #60 tabs albuterol sulfate 90 mcg/actuation 2 puff inhalation Q6H PRN 03/08/22 aerosol inhaler (ProAir HFA) shortness of breath or wheezing #18 grams buspirone 5 mg tablet 5 mg PO BID #180 tabs 03/08/22 Allergies Allergy/AdvReac Type Severity Reaction Status Date / Time methadone Allergy Severe seizure Verified 04/15/22 14:19 house dust Allergy Intermediate Wheezing Verified 04/15/22 14:19 Fish Containing Products AdvReac nausea/loose Verified 04/15/22 14:19 stools General Stated Complaint: SOB SKIP: 3 Review of Systems <KATLYN Mora - Last Filed: 04/16/22 10:22> All systems reviewed & are unremarkable except as noted in HPI and below PFSH <KATLYN Mora - Last Filed: 04/16/22 10:22> All Active Problems (Updated 04/15/22 @ 17:28 by Betty Ordoñez) Shortness of breath (Acute) Tendinitis of right rotator cuff (Acute) Mild obstructive sleep apnea (Acute) 03/19/21 [facility] sleep clinic, CPAP Seizure-like activity (Acute) Periodic limb movement (Acute ~01/08/21) Vertigo (Acute) Eye twitch (Acute) Postconcussive syndrome (Acute) Dependent edema (Acute) Depression (Chronic 03/29/15) Anxiety (Chronic) Spells of decreased attentiveness (Acute) Migraine headache with aura (Acute) Herpes zoster (Acute 03/29/15) H/O alcohol abuse (Acute) sober since 2014 Spells of trembling (Acute) Mood swings (Acute) Mild intermittent reactive airway disease without complication (Acute 05/13/18) History of behavior problem (Acute 03/29/15) Family history of diabetes mellitus (Acute 06/19/15) Cigarette nicotine dependence without complication (Acute 05/13/18) Chronic back pain (Acute 03/29/15) Normal MRI 11/2014 BMI 34.0-34.9,adult (Acute 11/05/17) 2018: 34.4 Medical History Anxiety Anxiety and depression Asthma BMI 34.0-34.9,adult (11/05/17) 2018: 34.4 Chronic back pain (03/29/15) Normal MRI 11/2014 Chronic headaches Cigarette nicotine dependence without complication (05/13/18) Dependent edema Depression (03/29/15) H/O alcohol abuse sober since 2014 High cholesterol Postconcussive syndrome Shingles (07/04/13) Surgical History Excision, Pilonidal Cyst (11/03/09) Tonsillectomy and adenoidectomy [facility] Family History Mother Diabetes Anxiety Arthritis Depression Father Heart disease Sister Asthma Grandfather Emphysema lung Grandmother No problems noted. Social History (Updated 05/17/21 @ 15:04 by Emilia Gomes LPN) Smoking/Tobacco Use Status: Current every day Tobacco Type: cigarettes Years smoked: 21 Quit status: considering quitting Smoking risk assessment performed?: Yes Alcohol Intake: never Previous attempts at quittin Drug use: Never Substance use type: does not use Household members: family and none Housing: apartment Number of Children: 0 current occupation: works at [employer] Pets and animals: Yes Pets and animals: cat(s) What type of physical activity do you participate in: walking Duration: 15-30 minutes/day Frequency: 5-6 times per week Seatbelt use: always Water heater temp set <120 deg: Yes Working smoke detector in home: Yes Fire extinguisher in home: Yes Do you feel safe at home: Yes Do you feel safe in your relationship?: Yes Exam <KATLYN Mora - Last Filed: 04/16/22 10:22> Const General: cooperative, comfortable and no acute distress HENMT Head: normal to inspection Resp Effort & Inspection: normal respiratory effort Auscultation: clear to auscultation bilaterally Cardio Rate: regular rate Rhythm: regular rhythm Skin General skin exam: no rashes or lesions noted Neuro General: patient alert and patient oriented x3 Extrem General: normal to inspection Other: Distal pulses intact, no calf swelling or tenderness appreciated Psych Appearance: grossly normal Course <KATLYN Mora Last Filed: 04/16/22 10:22> Vital Signs Vital signs: Vital Signs Temperature 36.7 C 04/15/22 14:16 Pulse 93 H 04/15/22 14:16 Respiratory Rate 17 04/15/22 14:16 Pulse Oximetry 97 04/15/22 14:16 Temperature 37.0 C 04/15/22 15:13 Temperature Source Temporal Artery Scan 04/15/22 15:13 Pulse 92 H 04/15/22 15:13 Respiratory Rate 18 04/15/22 14:21 Respiratory Effort 04/15/22 14:21 Respiratory Depth Normal 04/15/22 14:21 Respiratory Pattern Normal 04/15/22 14:21 Blood Pressure 123/73 04/15/22 15:13 Blood Pressure Position Sitting 04/15/22 14:16 Pulse Oximetry 96 04/15/22 15:13 Oxygen Delivery Method Room Air 04/15/22 14:16 Oxygen Flow Rate 0 04/15/22 14:16 Pain Level 0 04/15/22 15:13 Lab/Test Results Lab/Test Results: Laboratory Tests Range/Units 04/15/22 04/15/22 15:10 15:10 WBC (4.4-10.8) 10^3/uL 8.14 RBC (4.36-5.78) 10^6/uL 4.62 Hgb (13.5-17.5) g/dL 14.4 Hct (40.0-50.0) % 41.5 MCV (80-95) fL 90 MCH (27.0-33.0) pg 31.2 MCHC (32.0-36.0) % 34.7 RDW (11.8-14.1) % 13.2 Plt Count (130-400) 10^3/uL 251 MPV (8.0-11.0) fL 9.5 Immature Gran % 0.2 Neutrophils % 59.5 Lymphocytes % 28.3 Monocytes % 5.9 Eosinophils % 5.4 Basophils % 0.7 Nucleated RBC % (0.0-0.3) % 0.0 Absolute Neutrophils (1.2-6.7) 10^3/uL 4.84 Absolute Lymphocytes (1.2-3.4) 10^3/uL 2.30 Absolute Monocytes (0.1-0.8) 10^3/uL 0.48 Absolute Eosinophils (0.0-0.7) 10^3/uL 0.44 Absolute Basophils (0.0-0.2) 10^3/uL 0.06 Sodium (136-145) mmol/L 138 Potassium (3.5-5.1) mmol/L 3.8 Chloride (98-107) mmol/L 103 Carbon Dioxide (21.0-32.0) mmol/L 26.0 Anion Gap (3-11) mmol/L 9.0 BUN (7-18) mg/dL 18 Creatinine (0.70-1.30) mg/dL 1.2 Estimated GFR/1.73 m2 (mL/min/1.73m2) >= 60.00 Glucose (74-106) mg/dL 102 Calcium (8.5-10.1) mg/dL 8.8 Magnesium (1.8-2.4) mg/dL 1.8 Total Bilirubin (0.2-1.0) mg/dL 0.3 AST (15-37) U/L 8 L ALT (16-63) U/L 23 Alkaline Phosphatase (46-116) U/L 80 Troponin I (<or=60) ng/L < 50 Total Protein (6.4-8.2) g/dL 6.9 Albumin (3.4-5.0) g/dL 3.7 TSH (0.36-3.74) uIU/mL 2.07 Sign Out <KATLYN Mora - Last Filed: 04/16/22 10:22> Sign Out Data: Sign Out Comment: pending xray, trop, repeat ekg 1800 Last updated by Yael Mojica PA at 04/15/22 16:12
--- NOTE | 2022-04-15 18:01 | DI.VRAD_ITS ---
PROCEDURE INFORMATION: Exam: XR Chest Exam date and time: 04/15/2022 5:05 PM Age: 31 years old Clinical indication: Other: Shortness of breath, chest pain TECHNIQUE: Imaging protocol: XR of the chest. Views: 1 view. COMPARISON: CR XR CHEST 2V PA LATERAL 05/29/2020 12:04 PM FINDINGS: Lungs: Again noted is an azygos fissure at the medial apical right upper lobe. The lungs are clear. There is no pulmonary vascular congestion. Pleural spaces: There are no pleural effusions present. There is no evidence of pneumothorax. Heart/Mediastinum: The cardiomediastinal silhouette is within normal limits. Bones/joints: Unremarkable. IMPRESSION: No active cardiopulmonary disease identified. Dictated and Authenticated by: Carlos Rai MD. Ordering:TYSON Conley MD
== END 2022-04-15 17:35 | disposition home or self-care (01) ==
PROVIDERS: Physician Assistant; Emergency Provider Registered Nurse Emergency; PCP Family Medicine
DX: R06.02 Shortness of breath (principal); F41.9 Anxiety disorder, unspecified; R07.9 Chest pain, unspecified
CPT/HCPCS: 80053; 93005; 96360; 99284; 71045; 83735; 84443; 84484; 85025; 93010; 99283

== ENCOUNTER 2022-05-28 04:03 | Outpatient (CLI) | payer MEDICAID, SELFPAY ==
[2022-05-28 13:27] LABS: Calculated LDL 281 mg/dL (<100); Cholesterol 342 mg/dL (<200); HDL Cholesterol 37 mg/dL (40-60); Triglyceride 121 mg/dL (<150)
[2022-05-29 09:21] LABS: Hepatitis C Ab w Rflx HCV PCR Negative (Negative)
[2022-05-29 09:43] LABS: HIV-1/2 Ag & Ab Screen Negative (Negative)
== END 2022-05-28 04:04 | disposition home or self-care (01) ==
LOC: LBO 04:03
PROVIDERS: PCP Family Medicine; Visit Provider Family Medicine
DX: E78.5 Hyperlipidemia, unspecified (principal); Z11.3 Encounter for screening for infections with a predominantly sexual mode of transmission; Z12.4 Encounter for screening for malignant neoplasm of cervix; Z11.51 Encounter for screening for human papillomavirus (HPV)
CPT/HCPCS: 36415; 80061; 86803; 87389

== ENCOUNTER → 2022-07-11 02:02 | Outpatient (CLI) | payer MEDICAID, SELFPAY ==
--- NOTE | 2022-07-11 08:00 | DI.RAD_ITS ---
Exam(s) XR SHOULDER LT COMPLETE 2+V EXAM: XR SHOULDER LT COMPLETE 2+V CLINICAL HISTORY: Inability to fully abduct shoulder,TENDINITIS, M75,.81. TECHNIQUE: 2D digital imaging was performed of the left shoulder. Six images were obtained. AP, Gr ashey, Y-view and axillary views were obtained. COMPARISON: No priors for comparison. FINDINGS: BONES: No acute fracture is present. No bony destructive lesion is seen. JOINTS: No dislocation present. SOFT TISSUE: Normal. IMPRESSION: Unremarkable radiographs of the left shoulder. DATA REPOSITORY: RADIATION DOSE DELIVERED:
== END ==
PROVIDERS: PCP Family Medicine; Visit Provider Family Medicine
DX: M75.81 Other shoulder lesions, right shoulder (principal)
CPT/HCPCS: 73030

== ENCOUNTER → 2022-07-22 02:31 | Outpatient (CLI) | payer MEDICAID, SELFPAY ==
--- NOTE | 2022-07-22 07:00 | DI.MRI_ITS ---
Exam(s) MR UPPER JOINT LT WO EXAM: MR UPPER JOINT LT WO CLINICAL HISTORY: Shoulder pain, no response to conservative therapy,m25.512. TECHNIQUE: Multiplanar multisequence MRI was performed. COMPARISON: None. FINDINGS: Bones: There is no fracture or contusion pattern. The acromioclavicular joint is normal. Glenohumeral joint: Minimal fluid. Rotator Cuff: The supraspinatus tendon is intact. Infraspinatus tendon is intact. The subscapularis and teres minor are normal. Labrum and biceps anchor: The biceps tendon is located. The anchor is well maintained. The labrum is within normal limits. Muscles: No atrophy. Bursa: Small amount of fluid in subcoracoid bursa. IMPRESSION: Minimal amount of fluid in the subcoracoid bursa without evidence of tendon abnormality. No gross ev idence of a labral tear. DATA REPOSITORY:
== END ==
PROVIDERS: PCP Family Medicine; Visit Provider Family Medicine
DX: M25.512 Pain in left shoulder (principal)
CPT/HCPCS: 73221

== ENCOUNTER 2024-03-17 16:13 | Outpatient (REF) | payer MEDICAID, SELFPAY ==
[2024-03-17 21:40] LABS: Abs Immature Grans 0.03 10^3/uL (0.0-0.06); Absolute Basophil Count 0.05 10^3/uL (0.0-0.2); Absolute Eosinophil Count 0.19 10^3/uL (0.0-0.7); Absolute Lymphocyte Count 1.56 10^3/uL (1.2-3.4); Absolute Monocyte Count 1.05 10^3/uL (0.1-0.8); Basophils % 0.4 %; Eosinophils % 1.5 %; HCT 45.6 % (40.0-50.0); HGB 15.8 g/dL (13.5-17.5); Immature Grans % 0.2 %; Lymphocytes % 12.2 %; MCHC 34.6 % (32.0-36.0); MCV 92 fL (80-95); MPV 9.9 fL (8.0-11.0); Monocytes % 8.2 %; Neutrophils % 77.5 %; Platelet Count 264 10^3/uL (130-400); RBC 4.94 10^6/uL (4.36-5.78); RDW 13.4 % (11.8-14.1); RDW-SD 45.9 fL; WBC 12.78 10^3/uL (4.4-10.8)
[2024-03-17 21:51] LABS: ALT 22 U/L (16-63); AST 11 U/L (15-37); Albumin 3.8 g/dL (3.4-5.0); Alkaline Phosphatase 78 U/L (46-116); Anion Gap 7.7 mmol/L (3-11); BUN 13 mg/dL (7-18); Bilirubin, Total 0.5 mg/dL (0.2-1.0); CO2 29.3 mmol/L (21.0-32.0); CREATININE 1.2 mg/dL (0.70-1.30); Calcium 9.1 mg/dL (8.5-10.1); Chloride 100 mmol/L (98-107); Estimated GFR 81.38 (mL/min/1.73m2); Glucose 93 mg/dL (74-106); Lipase 18 U/L (16-77); Potassium 4.4 mmol/L (3.5-5.1); Sodium 137 mmol/L (136-145); Total Protein 7.8 g/dL (6.4-8.2)
== END 2024-03-17 16:14 | disposition home or self-care (01) ==
LOC: LBN 16:13
PROVIDERS: PCP Family Medicine; Visit Provider Physician Assistant Medical
DX: R10.11 Right upper quadrant pain (principal)
CPT/HCPCS: 80053; 83690; 85025